=== PATIENT | male | born 1990 | race African-American/Black ===

== ENCOUNTER 2016-11-30 23:32 | Emergency (ER) | payer OTHER ==
[2016-12-01 00:40] LABS: BASO # 0.2 K/mm3 (0.0-0.2); BASO % 1.5 % (0.0-1.0); EOS # 0.2 K/mm3 (0.0-0.50); EOS % 1.8 % (0.0-3.0); LARGE UNSTAINED CELL # 0.2 K/mm3 (0.0-0.4); LARGE UNSTAINED CELL % 1.3 % (0.0-4.0); LYMPH # 2.2 K/mm3 (1.5-6.5); LYMPH % 18.2 % (24.0-44.0); MEAN CORPUSCULAR HEMOGLOBIN 28.4 pg (27.0-33.0); MEAN CORPUSCULAR HGB CONC 32.7 g/dl (32.0-36.5); MEAN CORPUSCULAR VOLUME 86.6 fl (80.0-96.0); MONO # 0.6 K/mm3 (0.0-0.8); MONO % 5.5 % (0.0-5.0); NEUTROPHILS # 8.2 K/mm3 (1.8-7.7); NEUTROPHILS % 71.8 % (36.0-66.0); PLATELET COUNT, AUTOMATED 230 k/mm3 (150-450); RED CELL DISTRIBUTION WIDTH 13.1 % (11.5-14.5); WHITE BLOOD COUNT 11.4 K/mm3 (4.0-10.0)
[2016-12-01 01:03] LABS: BLOOD UREA NITROGEN 13 MG/DL (7-18); CREATININE FOR GFR 1.33 MG/DL (0.70-1.30); GLUCOSE, FASTING 101 MG/DL (70-105)
[2016-12-01 01:24] LABS: AMPHETAMINES LEVEL URINE NEGATIVE (NEGATIVE); BENZODIAZEPINES URINE NEGATIVE (NEGATIVE); COCAINE METABOLITE URINE NEGATIVE (NEGATIVE); CONTROL LINE INT CTR LINE PRESENT; METHADONE URINE NEGATIVE (NEGATIVE); OPIATES URINE NEGATIVE (NEGATIVE); TRICYCLIC ANTIDEPRESS URINE NEGATIVE (NEGATIVE)
[2016-12-01 01:57] LABS: CHLORIDE LEVEL 103 MEQ/L (98-107); POTASSIUM SERUM 3.6 MEQ/L (3.5-5.1); SODIUM LEVEL 141 MEQ/L (136-145)
--- NOTE | 2016-12-01 01:57 | EDDOCDS ---
Nurse's Notes [facility] Name: Elif Patel Age: 25 yrs Sex: Male : 1990 Arrival Date: 11/30/2016 Time: 23:32 Bed I5 / M5 [facility] Diagnosis: Syncope and collapse;Dehydration Presentation: 11/30 23:36 Presenting complaint: Patient states: pt reports syncopal episode approx 1 hour ago. ead denies hx of syncopal episodes. pt denies dizziness. reports "I just felt really tired tonight.". Adult Sepsis Screening: The patient does not have new or worsening altered mentation. Patient's respiratory rate is less than 22. Systolic blood pressure is greater than 100. Patient has a qSOFA score of 0- Negative Sepsis Screen. Suicide/Homicide risk assessment- the patient denies having any suicidal and/or homicidal ideations and does not present with any other emotional, behavioral or mental health complaints. 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 Transition of care: patient was not received from another setting of care. 23:36 Acuity: TORIN Level 3 ead 23:36 Method Of Arrival: Walkin/Carried/Asstd ead Triage Assessment: 23:38 General: Appears in no apparent distress, comfortable, well nourished, well groomed, ead Behavior is appropriate for age, cooperative, pleasant. Pain: Location: abdomen Pain currently is 5 out of 10 on a pain scale. Pain began "before Chata.". Neurological: Level of Consciousness is awake, alert, obeys commands, Oriented to person, place, time, Denies weakness dizziness. Respiratory: Airway is patent Respiratory effort is even, unlabored. GI: Reports lower abdominal pain, upper abd pain, Denies nausea, vomiting. Derm: No deficits noted. 23:40 Pt Declines HIV testing. ead Historical: - Allergies: no known allergies; - Home Meds: 1. none - PMHx: Cataracts; - PSHx: none; - Social history: Smoking status: Patient states was never smoker of tobacco. Patient/guardian denies using alcohol, street drugs, No barriers to communication noted, The patient speaks fluent Faroese, Speaks appropriately for age. - Family history: Not pertinent. - : The pt / caregiver states he / she is not on anticoagulants. Home medication list is obtained from the patient. - Exposure Risk Screening:: None identified. Screenin/05 00:34 Screening information is obtained from the patient. Fall risk: No risks identified. kas2 Assistance ADL's: requires no assistance with activities of daily living. Abuse/DV Screen: The patient / caregiver reports he/she is: not in a situation that causes fear, pain or injury. Nutritional screening: No deficits noted. Advance Directives: Currently, there is no health care proxy. There is no active DNR order. There is no living will. There is no Power of Box Shook Patcher. home support is adequate. Assessment: 00:33 General: Appears in no apparent distress, comfortable, well nourished, well groomed, kas2 Behavior is appropriate for age, cooperative. Pain: Denies pain. Neurological: Level of Consciousness is awake, alert, Oriented to person, place, time, Solution Architect are equal bilaterally Moves all extremities. Speech is normal, Facial symmetry appears normal, Pupils are PERRLA. Cardiovascular: Capillary refill < 3 seconds Heart tones present Rhythm is regular. Respiratory: Airway is patent Respiratory effort is even, unlabored, Respiratory pattern is regular, symmetrical, Breath sounds are clear bilaterally. Derm: Skin is intact, is healthy with good turgor, Skin is dry, Skin is normal, Skin temperature is warm. 01:22 General: Patient up to bathroom to void.. kas2 01:30 General: Patient back in room and settled with family at bedside. No complaints at this kas2 time. Appears comfortable. Will continue to monitor.. Vital Signs: 11/30 23:34 BP 189 / 89 RA Sitting (auto/lg); Pulse 119; Resp 18; Temp 98.7(O); Pulse Ox 100% ; cmb Weight 102.06 kg; Height 5 ft. 9 in. (175.26 cm); Pain 0/10; 12/01 00:01 BP 150 / 80 RA Sitting (man/lg); jmb 00:25 BP 130 / 58 Supine (auto/lg); Pulse 75; ajs 00:25 BP 146 / 89 Sitting (man/lg); Pulse 76; ajs 00:26 BP 145 / 82 Standing (/lg); Pulse 81; ajs 01:51 BP 136 / 75; Pulse 64; Resp 18; Temp 98.5; Pulse Ox 98% ; ajs 11/30 23:34 Body Mass Index 33.23 (102.06 kg, 175.26 cm) cmb Vitals: 11/30 23:34 Log In Time: November 30, 2016 at 23:32. cmb ED Course: 23:33 Patient visited by Shirlene Adams. cmb 23:33 Patient moved to Waiting cmb 23:34 [facility] is Private Physician. cmb 23:36 Patient moved to Pre RCE cmb 23:38 Triage Initiated ead 23:40 Patient moved to Triage 1 ead 23:54 EKG done. (by ED staff). Reviewed by Isac Garcia DO. jmb 12/01 00:05 Melo Acuna PA is PHCP. mo1 00:05 Isac Garcia DO is Attending Physician. mo1 00:17 Patient visited by Melo Acuna PA. mo1 00:19 Patient moved to I5 / M5 jmb 00:26 Patient visited by Gail Cerrato. ajs 00:27 Drug Eval Toxicology ED Only Sent. jmb 00:27 Urinalysis Sent. jmb 00:34 Inserted saline lock: 20 gauge in left antecubital area and blood collected. The kas2 patient tolerated the procedure well. No procedures done that require assistance. 00:35 Patient visited by Kerry Rader RN. kas2 00:48 [facility] Payment Agreement was scanned into [employer] and attached to record. [facility] 00:55 Patient name changed from Jaerendiranta\\S\\\\S\\Jorge\\S\\ to Javonta\\S\\Loren\\S\\Jorge. EDMS 01:07 Patient visited by Kerry Rader RN. kas2 01:22 Patient visited by Kerry Rader RN. kas2 01:42 [facility] is Referral Physician. mo1 01:48 Patient visited by Kerry Rader RN. kas2 01:51 Patient visited by Gail Cerrato. ajs 01:52 Discontinued IV bleeding controlled, pressure dressing applied, No redness/swelling at [facility] site. 01:53 The patient / caregiver is instructed regarding the plan of care and ED course. kas2 Administered Medications: 00:32 Drug: NS 0.9% 1000 ml [sodium chloride 0.9 % intravenous solution] Route: IV; Rate: kas2 bolus; Site: left antecubital; Order Results: Lab Order: Basic Metabolic Profile; SPEC'M 12/01/16 00:30 Test: GLUCOSE, FASTING; Value: 101; Range: 70-105; Units: MG/DL; Status: F Test: BLOOD UREA NITROGEN; Value: 13; Range: 7-18; Units: MG/DL; Status: F Test: CREATININE FOR GFR; Value: 1.33; Range: 0.70-1.30; Abnormal: Above high normal; Units: MG/DL; Status: F Test: SODIUM LEVEL; Value: 141; Range: 136-145; Units: MEQ/L; Status: F Test: POTASSIUM SERUM; Value: 3.6; Range: 3.5-5.1; Units: MEQ/L; Status: F Test: CHLORIDE LEVEL; Value: 103; Range: 98-107; Units: MEQ/L; Status: F Test: CARBON DIOXIDE LEVEL; Value: 30; Range: 21-32; Units: MEQ/L; Status: F Test: ANION GAP; Range: 8-16; Units: MEQ/L; Status: I Test: CALCIUM LEVEL; Value: 9.0; Range: 8.5-10.1; Units: MG/DL; Status: F Lab Order: CBC with Diff; SPEC'M 12/01/16 00:30 Test: WHITE BLOOD COUNT; Value: 11.4; Range: 4.0-10.0; Abnormal: Above high normal; Units: K/mm3; Status: F Test: RED BLOOD COUNT; Value: 4.95; Range: 4.30-6.10; Units: M/mm3; Status: F Test: HEMOGLOBIN; Value: 14.0; Range: 14.0-18.0; Units: g/dl; Status: F Test: HEMATOCRIT; Value: 42.9; Range: 42.0-52.0; Units: %; Status: F Test: MEAN CORPUSCULAR VOLUME; Value: 86.6; Range: 80.0-96.0; Units: fl; Status: F Test: MEAN CORPUSCULAR HEMOGLOBIN; Value: 28.4; Range: 27.0-33.0; Units: pg; Status: F Test: MEAN CORPUSCULAR HGB CONC; Value: 32.7; Range: 32.0-36.5; Units: g/dl; Status: F Test: RED CELL DISTRIBUTION WIDTH; Value: 13.1; Range: 11.5-14.5; Units: %; Status: F Test: PLATELET COUNT, AUTOMATED; Value: 230; Range: 150-450; Units: k/mm3; Status: F Test: NEUTROPHILS %; Value: 71.8; Range: 36.0-66.0; Abnormal: Above high normal; Units: %; Status: F Test: LYMPH %; Value: 18.2; Range: 24.0-44.0; Abnormal: Below low normal; Units: %; Status: F Test: MONO %; Value: 5.5; Range: 0.0-5.0; Abnormal: Above high normal; Units: %; Status: F Test: EOS %; Value: 1.8; Range: 0.0-3.0; Units: %; Status: F Test: BASO %; Value: 1.5; Range: 0.0-1.0; Abnormal: Above high normal; Units: %; Status: F Test: LARGE UNSTAINED CELL %; Value: 1.3; Range: 0.0-4.0; Units: %; Status: F Test: NEUTROPHILS #; Value: 8.2; Range: 1.8-7.7; Abnormal: Above high normal; Units: K/mm3; Status: F Test: LYMPH #; Value: 2.2; Range: 1.5-6.5; Units: K/mm3; Status: F Test: MONO #; Value: 0.6; Range: 0.0-0.8; Units: K/mm3; Status: F Test: EOS #; Value: 0.2; Range: 0.0-0.50; Units: K/mm3; Status: F Test: BASO #; Value: 0.2; Range: 0.0-0.2; Units: K/mm3; Status: F Test: LARGE UNSTAINED CELL #; Value: 0.2; Range: 0.0-0.4; Units: K/mm3; Status: F Lab Order: Cardiac Injury Profile; SPEC'M 12/01/16 00:30 Test: CPK CREATINE PHOSPHOKINASE; Value: 1743; Range: 39-308; Abnormal: Above high normal; Units: U/L; Status: F Test: CK-MB VALUE MASS; Value: 2.9; Range: 0.0-3.6; Units: NG/ML; Status: F Test: MB/CK RELATIVE INDEX; Value: 0.16; Range: < OR =4; Status: F Test Note: ; DIAGNOSIS CRITERIA MMB ng/ml Relative Index (RI) NON-AMI < or = 5 N/A LUCAS ZONE > 5 < or = 4 AMI > 5 > 4 Lab Order: Drug Eval Toxicology ED Only; SPEC'M 12/01/16 00:30 Test: AMPHETAMINES LEVEL URINE; Value: NEGATIVE; Range: NEGATIVE; Status: F Test: BARBITURATES URINE; Value: NEGATIVE; Range: NEGATIVE; Status: F Test: BENZODIAZEPINES URINE; Value: NEGATIVE; Range: NEGATIVE; Status: F Test: CANNABINOIDS URINE; Value: NEGATIVE; Range: NEGATIVE; Status: F Test: COCAINE METABOLITE URINE; Value: NEGATIVE; Range: NEGATIVE; Status: F Test: METHADONE URINE; Value: NEGATIVE; Range: NEGATIVE; Status: F Test: OPIATES URINE; Value: NEGATIVE; Range: NEGATIVE; Status: F Test: TRICYCLIC ANTIDEPRESS URINE; Value: NEGATIVE; Range: NEGATIVE; Status: F Test Note: ; ALL PRESUMPTIVE POSITIVE FINDINGS ARE UNCONFIRMED NORMAL VALUES THRESHOLD IN NG/ML AMPHETAMINES 1000 METHAMPHETAMINES 1000 BARBITURATES 300 BENZODIAZEPINES 300 CANNABINOIDS (THC) 50 COCAINE METABOLITE 300 METHADONE 300 OPIATES 300 PHENCYCLIDINE 25 TRICYCLIC ANTIDEPRESSANTS 1000 RESULTS ARE FOR MEDICAL PURPOSES ONLY. ALL URINE SPECIMENS WILL BE SAVED FOR 3 DAYS. IF CONFIRMATION OF A PRESUMPTIVE POSTIVE SCREEN RESULT IS DESIRED, CALL CHEMISTRY ([phone]) AND REQUEST URINE TO BE SENT TO REFERENCE LAB. FOR A LIST OF CLOSELY RELATED COMPOUNDS PLEASE CALL THE LAB. Lab Order: Thyroid Stimulating Hormone; SPEC'M 12/01/16 00:30 Test: THYROID STIMULATING HORMONE; Value: 2.350; Range: 0.358-3.740; Units: uIU/ML; Status: F Lab Order: Troponin; SPEC'M 12/01/16 00:30 Test: TROPONIN I; Value: < 0.02; Range: < 0.10; Units: NG/ML; Status: F Test Note: ; Troponin I Reference Interval for Siemens [place] LOCI: 99th Percentile= 0.00-0.045 ng/ml Risk Stratification: <= 0.10 ng/ml Decreased Risk for Adverse Clinical Events. 0.10-1.50 ng/ml Increased Risk for Adverse Clinical Events. Evaluation of additional criterion and/or repeat testing in 2-6 hours is suggested to rule out myocardial damage. >= 1.50 ng/ml Indicative of Myocardial Injury. Lab Order: Urinalysis; SPEC'M 12/01/16 00:30 Test: APPEARANCE, URINE; Value: CLEAR; Range: CLEAR; Status: F Test: COLOR, URINE; Value: COLORLESS; Range: YELLOW; Status: F Test: PH,URINE; Value: 6.0; Range: 5.0-9.0; Units: UNITS; Status: F Test: SPECIFIC GRAVITY URINE AUTO; Value: 1.001; Range: 1.002-1.035; Abnormal: Below low normal; Status: F Test: PROTEIN, URINE AUTO; Value: NEGATIVE; Range: NEGATIVE; Units: mg/dL; Status: F Test: GLUCOSE, URINE (UA) AUTO; Value: NEGATIVE; Range: NEGATIVE; Units: mg/dL; Status: F Test: KETONE, URINE AUTO; Value: NEGATIVE; Range: NEGATIVE; Units: mg/dL; Status: F Test: UROBILINOGEN, URINE AUTO; Value: 0.2; Range: 0.0-2.0; Units: mg/dL; Status: F Test: BILIRUBIN, URINE AUTO; Value: NEGATIVE; Range: NEGATIVE; Status: F Test: NITRITE, URINE AUTO; Value: NEGATIVE; Range: NEGATIVE; Status: F Test: LEUKOCYTE ESTERASE, URINE AUTO; Value: NEGATIVE; Range: NEGATIVE; Status: F Test: BLOOD, URINE BLOOD; Value: NEGATIVE; Range: NEGATIVE; Status: F Test: WBC, URINE AUTO; Value: 0; Range: 0-3; Units: /HPF; Status: F Test: RBC, URINE AUTO; Value: 0; Range: 0-3; Units: /HPF; Status: F Test: BACTERIA, URINE AUTO; Value: NEGATIVE; Range: NEGATIVE; Status: F Test: SQUAMOUS EPITHELIAL CELL UR AU; Value: 0; Range: 0-6; Units: /HPF; Status: F Test: HYALINE CAST, URINE AUTO; Value: 0; Range: 0-1; Units: /LPF; Status: F Outcome: 01:43 Discharge ordered by Provider. mo1 01:53 Discharge Assessment: patient administered narcotics - no. The following High Risk [facility] Discharge criteria are identified: None. Discharged to home ambulatory, with family. Condition: good Condition: stable Condition: improved. No special radiology studies were completed. Property :Personal belongings accompany Pt. 01:56 [facility]. [facility] Signatures: Dispatcher [employer] Gail Schmidt Chelsea cmb O'Hagan, Michael, PA PA mo1 Matt GarciaRN RN Chasidy Bentley RN RN ead Hook, Sandra slh Smith, KimRN RN kas2 RUTHIE
--- NOTE | 2016-12-01 01:57 | EDDOCDS ---
Physician Documentation [facility] Name: Elif Patel Age: 25 yrs Sex: Male : 1990 Arrival Date: 11/30/2016 Time: 23:32 Bed I5 / M5 Private MD: [facility] Disposition: 12/01/16 01:43 Discharged to Home/Self Care. Impression: Syncope and collapse, Dehydration. - Condition is Stable. - Discharge Instructions: Dehydration, Adult, Near-Syncope, Syncope. - Medication Reconciliation, Local Pharmacy Hours form. - Follow up: [facility]; When: Call to arrange an appointment; Reason: Recheck today's complaints, Continuance of care. - Problem is new. - Symptoms have improved. Historical: - Allergies: no known allergies; - Home Meds: 1. none - PMHx: Cataracts; - PSHx: none; - Social history: Smoking status: Patient states was never smoker of tobacco. Patient/guardian denies using alcohol, street drugs, No barriers to communication noted, The patient speaks fluent Finnish, Speaks appropriately for age. - Family history: Not pertinent. - : The pt / caregiver states he / she is not on anticoagulants. Home medication list is obtained from the patient. - Exposure Risk Screening:: None identified. Vital Signs: 11/30 23:34 BP 189 / 89 RA Sitting (auto/lg); Pulse 119; Resp 18; Temp 98.7(O); Pulse Ox 100% ; cmb Weight 102.06 kg / 225 lbs; Height 5 ft. 9 in. (175.26 cm); Pain 0/10; 12/01 00:01 BP 150 / 80 RA Sitting (man/lg); jmb 00:25 BP 130 / 58 Supine (auto/lg); Pulse 75; ajs 00:25 BP 146 / 89 Sitting (man/lg); Pulse 76; ajs 00:26 BP 145 / 82 Standing (/lg); Pulse 81; ajs 01:51 BP 136 / 75; Pulse 64; Resp 18; Temp 98.5; Pulse Ox 98% ; ajs 11/30 23:34 Body Mass Index 33.23 (102.06 kg, 175.26 cm) cmb MDM: 11/30 23:45 ECG WITH READING ER PHYS+CARDIAG ordered. EDMS 12/01 00:21 IV Saline Lock ordered. mo1 00:21 Orthostatic VS ordered. mo1 00:21 NS 0.9% 1000 ml IV at bolus once ordered. mo1 00:22 Basic Metabolic Profile Ordered. EDMS 00:22 CBC with Diff Ordered. EDMS 00:22 Cardiac Injury Profile Ordered. EDMS 00:22 Drug Eval Toxicology ED Only Ordered. EDMS 00:22 Thyroid Stimulating Hormone Ordered. EDMS 00:22 Troponin Ordered. EDMS 00:22 Urinalysis Ordered. EDMS 00:44 Financial registration complete. [facility] 00:48 [facility] Payment Agreement was scanned into [employer] and attached to record. slh 01:34 CBC with Diff Reviewed. mo1 01:34 Cardiac Injury Profile Reviewed. mo1 01:34 Urinalysis Reviewed. mo1 01:34 Drug Eval Toxicology ED Only Reviewed. mo1 01:34 Thyroid Stimulating Hormone Reviewed. mo1 01:35 Troponin Reviewed. mo1 01:50 Basic Metabolic Profile Reviewed. mo1 Administered Medications: 00:32 Drug: NS 0.9% 1000 ml [sodium chloride 0.9 % intravenous solution] Route: IV; Rate: kas2 bolus; Site: left antecubital; Signatures: Dispatcher [employer] EDMN Melo Acuna PA PA mo1 Chasidy CamposRN Antonia Mitchell Kim, RN RN kas2 The chart was reviewed and I authenticate all verbal orders and agree with the evaluation and treatment provided.Attachments: 00:48 [facility] Payment Agreement [facility] MTDD
[2016-12-01 01:58] LABS: ANION GAP 8 MEQ/L (8-16); CARBON DIOXIDE LEVEL 30 MEQ/L (21-32)
--- NOTE | 2016-12-01 12:06 | ECGEPIP ---
Stationary ECG Study [facility] - ED Test Date: 2016-11-30 Pat Name: KWAKU HOUGH Department: Room: - Gender: M Central Services Tech: jacob : 1990 Requested By: MADISON OZUNA Order Number: [id number] Reading MD: Gale Espino Measurements Intervals Deane Rate: 87 P: 70 AR: 132 QRS: 68 QRSD: 102 T: 26 QT: 349 QTc: 421 Interpretive Statements SINUS RHYTHM RIGHT VENTRICULAR CONDUCTION DELAY NO PRIOR FOR COMPARISON Electronically Signed On 12-01-2016 12:06:05 EST by Gale Espino
--- NOTE | 2016-12-03 02:58 | EDDOCDS ---
Nurse's Notes [facility] Name: Kwaku Hough Age: 25 yrs Sex: Male : 1990 Arrival Date: 11/30/2016 Time: 23:32 Bed I5 / M5 [facility] Diagnosis: Syncope and collapse;Dehydration Presentation: 11/30 23:36 Presenting complaint: Patient states: pt reports syncopal episode approx 1 hour ago. ead denies hx of syncopal episodes. pt denies dizziness. reports "I just felt really tired tonight.". Adult Sepsis Screening: The patient does not have new or worsening altered mentation. Patient's respiratory rate is less than 22. Systolic blood pressure is greater than 100. Patient has a qSOFA score of 0- Negative Sepsis Screen. Suicide/Homicide risk assessment- the patient denies having any suicidal and/or homicidal ideations and does not present with any other emotional, behavioral or mental health complaints. Status: The patient is an active duty manager student services. Transition of care: patient was not received from another setting of care. 23:36 Acuity: TORIN Level 3 ead 23:36 Method Of Arrival: Walkin/Carried/Asstd ead Triage Assessment: 23:38 General: Appears in no apparent distress, comfortable, well nourished, well groomed, ead Behavior is appropriate for age, cooperative, pleasant. Pain: Location: abdomen Pain currently is 5 out of 10 on a pain scale. Pain began "before Ch[place].". Neurological: Level of Consciousness is awake, alert, obeys commands, Oriented to person, place, time, Denies weakness dizziness. Respiratory: Airway is patent Respiratory effort is even, unlabored. GI: Reports lower abdominal pain, upper abd pain, Denies nausea, vomiting. Derm: No deficits noted. 23:40 Pt Declines HIV testing. ead Historical: - Allergies: no known allergies; - Home Meds: 1. none - PMHx: Cataracts; - PSHx: none; - Social history: Smoking status: Patient states was never smoker of tobacco. Patient/guardian denies using alcohol, street drugs, No barriers to communication noted, The patient speaks fluent German, Speaks appropriately for age. - Family history: Not pertinent. - : The pt / caregiver states he / she is not on anticoagulants. Home medication list is obtained from the patient. - Exposure Risk Screening:: None identified. Screenin/05 00:34 Screening information is obtained from the patient. Fall risk: No risks identified. kas2 Assistance ADL's: requires no assistance with activities of daily living. Abuse/DV Screen: The patient / caregiver reports he/she is: not in a situation that causes fear, pain or injury. Nutritional screening: No deficits noted. Advance Directives: Currently, there is no health care proxy. There is no active DNR order. There is no living will. There is no Power of Observer [employer]. home support is adequate. Assessment: 00:33 General: Appears in no apparent distress, comfortable, well nourished, well groomed, kas2 Behavior is appropriate for age, cooperative. Pain: Denies pain. Neurological: Level of Consciousness is awake, alert, Oriented to person, place, time, Physical Therapy Technician are equal bilaterally Moves all extremities. Speech is normal, Facial symmetry appears normal, Pupils are PERRLA. Cardiovascular: Capillary refill < 3 seconds Heart tones present Rhythm is regular. Respiratory: Airway is patent Respiratory effort is even, unlabored, Respiratory pattern is regular, symmetrical, Breath sounds are clear bilaterally. Derm: Skin is intact, is healthy with good turgor, Skin is dry, Skin is normal, Skin temperature is warm. 01:22 General: Patient up to bathroom to void.. kas2 01:30 General: Patient back in room and settled with family at bedside. No complaints at this kas2 time. Appears comfortable. Will continue to monitor.. Vital Signs: 11/30 23:34 BP 189 / 89 RA Sitting (auto/lg); Pulse 119; Resp 18; Temp 98.7(O); Pulse Ox 100% ; cmb Weight 102.06 kg; Height 5 ft. 9 in. (175.26 cm); Pain 0/10; 12/01 00:01 BP 150 / 80 RA Sitting (man/lg); jmb 00:25 BP 130 / 58 Supine (auto/lg); Pulse 75; ajs 00:25 BP 146 / 89 Sitting (man/lg); Pulse 76; ajs 00:26 BP 145 / 82 Standing (/lg); Pulse 81; ajs 01:51 BP 136 / 75; Pulse 64; Resp 18; Temp 98.5; Pulse Ox 98% ; ajs 11/30 23:34 Body Mass Index 33.23 (102.06 kg, 175.26 cm) cmb Vitals: 11/30 23:34 Log In Time: November 30, 2016 at 23:32. cmb ED Course: 23:33 Patient visited by Shirlene Adams. cmb 23:33 Patient moved to Waiting cmb 23:34 [facility] is Private Physician. cmb 23:36 Patient moved to Pre RCE cmb 23:38 Triage Initiated ead 23:40 Patient moved to Triage 1 ead 23:54 EKG done. (by ED staff). Reviewed by Madison Ozuna DO. jmb 12/01 00:05 Melo Acuna PA is PHCP. mo1 00:05 Madison Ozuna DO is Attending Physician. mo1 00:17 Patient visited by Melo Acuna PA. mo1 00:19 Patient moved to I5 / M5 jmb 00:26 Patient visited by Gail Cerrato. ajs 00:27 Drug Eval Toxicology ED Only Sent. jmb 00:27 Urinalysis Sent. jmb 00:34 Inserted saline lock: 20 gauge in left antecubital area and blood collected. The kas2 patient tolerated the procedure well. No procedures done that require assistance. 00:35 Patient visited by Kerry Rader RN. kas2 00:48 [facility] Payment Agreement was scanned into [employer] and attached to record. [facility] 00:55 Patient name changed from Javonta\\S\\\\S\\Jorge\\S\\ to Javonta\\S\\Loren\\S\\Jorge. EDMS 01:07 Patient visited by Kerry Rader RN. kas2 01:22 Patient visited by Kerry Rader RN. kas2 01:42 [facility] is Referral Physician. mo1 01:48 Patient visited by Kerry Rader RN. kas2 01:51 Patient visited by Gail Cerrato. ajs 01:52 Discontinued IV bleeding controlled, pressure dressing applied, No redness/swelling at [facility] site. 01:53 The patient / caregiver is instructed regarding the plan of care and ED course. kas2 12:30 EKG-ADULT Returned. EDMS 12/02 08:53 T-Sheet-- Draft Copy was scanned into [employer] and attached to record. gb Administered Medications: 12/01 00:32 Drug: NS 0.9% 1000 ml [sodium chloride 0.9 % intravenous solution] Route: IV; Rate: kas2 bolus; Site: left antecubital; Order Results: Lab Order: Basic Metabolic Profile; SPEC'M 12/01/16 00:30 Test: GLUCOSE, FASTING; Value: 101; Range: 70-105; Units: MG/DL; Status: F Test: BLOOD UREA NITROGEN; Value: 13; Range: 7-18; Units: MG/DL; Status: F Test: CREATININE FOR GFR; Value: 1.33; Range: 0.70-1.30; Abnormal: Above high normal; Units: MG/DL; Status: F Test: SODIUM LEVEL; Value: 141; Range: 136-145; Units: MEQ/L; Status: F Test: POTASSIUM SERUM; Value: 3.6; Range: 3.5-5.1; Units: MEQ/L; Status: F Test: CHLORIDE LEVEL; Value: 103; Range: 98-107; Units: MEQ/L; Status: F Test: CARBON DIOXIDE LEVEL; Value: 30; Range: 21-32; Units: MEQ/L; Status: F Test: ANION GAP; Value: 8; Range: 8-16; Units: MEQ/L; Status: F Test: CALCIUM LEVEL; Value: 9.0; Range: 8.5-10.1; Units: MG/DL; Status: F Lab Order: CBC with Diff; SPEC'M 12/01/16 00:30 Test: WHITE BLOOD COUNT; Value: 11.4; Range: 4.0-10.0; Abnormal: Above high normal; Units: K/mm3; Status: F Test: RED BLOOD COUNT; Value: 4.95; Range: 4.30-6.10; Units: M/mm3; Status: F Test: HEMOGLOBIN; Value: 14.0; Range: 14.0-18.0; Units: g/dl; Status: F Test: HEMATOCRIT; Value: 42.9; Range: 42.0-52.0; Units: %; Status: F Test: MEAN CORPUSCULAR VOLUME; Value: 86.6; Range: 80.0-96.0; Units: fl; Status: F Test: MEAN CORPUSCULAR HEMOGLOBIN; Value: 28.4; Range: 27.0-33.0; Units: pg; Status: F Test: MEAN CORPUSCULAR HGB CONC; Value: 32.7; Range: 32.0-36.5; Units: g/dl; Status: F Test: RED CELL DISTRIBUTION WIDTH; Value: 13.1; Range: 11.5-14.5; Units: %; Status: F Test: PLATELET COUNT, AUTOMATED; Value: 230; Range: 150-450; Units: k/mm3; Status: F Test: NEUTROPHILS %; Value: 71.8; Range: 36.0-66.0; Abnormal: Above high normal; Units: %; Status: F Test: LYMPH %; Value: 18.2; Range: 24.0-44.0; Abnormal: Below low normal; Units: %; Status: F Test: MONO %; Value: 5.5; Range: 0.0-5.0; Abnormal: Above high normal; Units: %; Status: F Test: EOS %; Value: 1.8; Range: 0.0-3.0; Units: %; Status: F Test: BASO %; Value: 1.5; Range: 0.0-1.0; Abnormal: Above high normal; Units: %; Status: F Test: LARGE UNSTAINED CELL %; Value: 1.3; Range: 0.0-4.0; Units: %; Status: F Test: NEUTROPHILS #; Value: 8.2; Range: 1.8-7.7; Abnormal: Above high normal; Units: K/mm3; Status: F Test: LYMPH #; Value: 2.2; Range: 1.5-6.5; Units: K/mm3; Status: F Test: MONO #; Value: 0.6; Range: 0.0-0.8; Units: K/mm3; Status: F Test: EOS #; Value: 0.2; Range: 0.0-0.50; Units: K/mm3; Status: F Test: BASO #; Value: 0.2; Range: 0.0-0.2; Units: K/mm3; Status: F Test: LARGE UNSTAINED CELL #; Value: 0.2; Range: 0.0-0.4; Units: K/mm3; Status: F Lab Order: Cardiac Injury Profile; SPEC'M 12/01/16 00:30 Test: CPK CREATINE PHOSPHOKINASE; Value: 1743; Range: 39-308; Abnormal: Above high normal; Units: U/L; Status: F Test: CK-MB VALUE MASS; Value: 2.9; Range: 0.0-3.6; Units: NG/ML; Status: F Test: MB/CK RELATIVE INDEX; Value: 0.16; Range: < OR =4; Status: F Test Note: ; DIAGNOSIS CRITERIA MMB ng/ml Relative Index (RI) NON-AMI < or = 5 N/A LUCAS ZONE > 5 < or = 4 AMI > 5 > 4 Lab Order: Drug Eval Toxicology ED Only; SPEC'M 12/01/16 00:30 Test: AMPHETAMINES LEVEL URINE; Value: NEGATIVE; Range: NEGATIVE; Status: F Test: BARBITURATES URINE; Value: NEGATIVE; Range: NEGATIVE; Status: F Test: BENZODIAZEPINES URINE; Value: NEGATIVE; Range: NEGATIVE; Status: F Test: CANNABINOIDS URINE; Value: NEGATIVE; Range: NEGATIVE; Status: F Test: COCAINE METABOLITE URINE; Value: NEGATIVE; Range: NEGATIVE; Status: F Test: METHADONE URINE; Value: NEGATIVE; Range: NEGATIVE; Status: F Test: OPIATES URINE; Value: NEGATIVE; Range: NEGATIVE; Status: F Test: TRICYCLIC ANTIDEPRESS URINE; Value: NEGATIVE; Range: NEGATIVE; Status: F Test Note: ; ALL PRESUMPTIVE POSITIVE FINDINGS ARE UNCONFIRMED NORMAL VALUES THRESHOLD IN NG/ML AMPHETAMINES 1000 METHAMPHETAMINES 1000 BARBITURATES 300 BENZODIAZEPINES 300 CANNABINOIDS (THC) 50 COCAINE METABOLITE 300 METHADONE 300 OPIATES 300 PHENCYCLIDINE 25 TRICYCLIC ANTIDEPRESSANTS 1000 RESULTS ARE FOR MEDICAL PURPOSES ONLY. ALL URINE SPECIMENS WILL BE SAVED FOR 3 DAYS. IF CONFIRMATION OF A PRESUMPTIVE POSTIVE SCREEN RESULT IS DESIRED, CALL CHEMISTRY ([phone]) AND REQUEST URINE TO BE SENT TO REFERENCE LAB. FOR A LIST OF CLOSELY RELATED COMPOUNDS PLEASE CALL THE LAB. Lab Order: Thyroid Stimulating Hormone; SPEC'M 12/01/16 00:30 Test: THYROID STIMULATING HORMONE; Value: 2.350; Range: 0.358-3.740; Units: uIU/ML; Status: F Lab Order: Troponin; SPEC'M 12/01/16 00:30 Test: TROPONIN I; Value: < 0.02; Range: < 0.10; Units: NG/ML; Status: F Test Note: ; Troponin I Reference Interval for Siemens [place] LOCI: 99th Percentile= 0.00-0.045 ng/ml Risk Stratification: <= 0.10 ng/ml Decreased Risk for Adverse Clinical Events. 0.10-1.50 ng/ml Increased Risk for Adverse Clinical Events. Evaluation of additional criterion and/or repeat testing in 2-6 hours is suggested to rule out myocardial damage. >= 1.50 ng/ml Indicative of Myocardial Injury. Lab Order: Urinalysis; SPEC'M 12/01/16 00:30 Test: APPEARANCE, URINE; Value: CLEAR; Range: CLEAR; Status: F Test: COLOR, URINE; Value: COLORLESS; Range: YELLOW; Status: F Test: PH,URINE; Value: 6.0; Range: 5.0-9.0; Units: UNITS; Status: F Test: SPECIFIC GRAVITY URINE AUTO; Value: 1.001; Range: 1.002-1.035; Abnormal: Below low normal; Status: F Test: PROTEIN, URINE AUTO; Value: NEGATIVE; Range: NEGATIVE; Units: mg/dL; Status: F Test: GLUCOSE, URINE (UA) AUTO; Value: NEGATIVE; Range: NEGATIVE; Units: mg/dL; Status: F Test: KETONE, URINE AUTO; Value: NEGATIVE; Range: NEGATIVE; Units: mg/dL; Status: F Test: UROBILINOGEN, URINE AUTO; Value: 0.2; Range: 0.0-2.0; Units: mg/dL; Status: F Test: BILIRUBIN, URINE AUTO; Value: NEGATIVE; Range: NEGATIVE; Status: F Test: NITRITE, URINE AUTO; Value: NEGATIVE; Range: NEGATIVE; Status: F Test: LEUKOCYTE ESTERASE, URINE AUTO; Value: NEGATIVE; Range: NEGATIVE; Status: F Test: BLOOD, URINE BLOOD; Value: NEGATIVE; Range: NEGATIVE; Status: F Test: WBC, URINE AUTO; Value: 0; Range: 0-3; Units: /HPF; Status: F Test: RBC, URINE AUTO; Value: 0; Range: 0-3; Units: /HPF; Status: F Test: BACTERIA, URINE AUTO; Value: NEGATIVE; Range: NEGATIVE; Status: F Test: SQUAMOUS EPITHELIAL CELL UR AU; Value: 0; Range: 0-6; Units: /HPF; Status: F Test: HYALINE CAST, URINE AUTO; Value: 0; Range: 0-1; Units: /LPF; Status: F Radiology Order: EKG-ADULT Test: EKG-ADULT REASON FOR EXAMINATION: Syncope; Stationary ECG Study; [facility] - ED; ; Test Date: 2016-11-30; Pat Name: KWAKU HOUGH Department:; Room: -; Gender: M Director Of Product Marketing: jacob; : 1990 Requested By: MADISON OZUNA; Order Number: [id number] Reading MD: Gale Espino; Measurements; Intervals [place]; Rate: 87 P: 70; VT: 132 QRS: 68; QRSD: 102 T: 26; QT: 349; QTc: 421; Interpretive Statements; SINUS RHYTHM; RIGHT VENTRICULAR CONDUCTION DELAY; NO PRIOR FOR COMPARISON; Electronically Signed On 12-01-2016 12:06:05 EST by Gale Espino; Outcome: 01:43 Discharge ordered by Provider. mo1 01:53 Discharge Assessment: patient administered narcotics - no. The following High Risk [facility] Discharge criteria are identified: None. Discharged to home ambulatory, with family. Condition: good Condition: stable Condition: improved. No special radiology studies were completed. Property :Personal belongings accompany Pt. 01:56 Patient left the ED. kas2 Signatures: Dispatcher [employer] EDMS Caryn Kim, Gail Borajs [place] cmb O'Hagan, Michael, PA PA mo1 Matt GarciaRN RN Chasidy Bentley RN RN Antonia Zuñiga Kim, RN RN kas2 Chart Complete MTDD
--- NOTE | 2016-12-03 02:58 | EDDOCDS ---
Physician Documentation [facility] Name: Elif Patel Age: 25 yrs Sex: Male : 1990 Arrival Date: 11/30/2016 Time: 23:32 Bed I5 / M5 Private MD: [facility] Disposition: 12/01/16 01:43 Discharged to Home/Self Care. Impression: Syncope and collapse, Dehydration. - Condition is Stable. - Discharge Instructions: Dehydration, Adult, Near-Syncope, Syncope. - Medication Reconciliation, Local Pharmacy Hours form. - Follow up: [facility]; When: Call to arrange an appointment; Reason: Recheck today's complaints, Continuance of care. - Problem is new. - Symptoms have improved. Historical: - Allergies: no known allergies; - Home Meds: 1. none - PMHx: Cataracts; - PSHx: none; - Social history: Smoking status: Patient states was never smoker of tobacco. Patient/guardian denies using alcohol, street drugs, No barriers to communication noted, The patient speaks fluent Hungarian, Speaks appropriately for age. - Family history: Not pertinent. - : The pt / caregiver states he / she is not on anticoagulants. Home medication list is obtained from the patient. - Exposure Risk Screening:: None identified. Vital Signs: 11/30 23:34 BP 189 / 89 RA Sitting (auto/lg); Pulse 119; Resp 18; Temp 98.7(O); Pulse Ox 100% ; cmb Weight 102.06 kg / 225 lbs; Height 5 ft. 9 in. (175.26 cm); Pain 0/10; 12/01 00:01 BP 150 / 80 RA Sitting (man/lg); jmb 00:25 BP 130 / 58 Supine (auto/lg); Pulse 75; ajs 00:25 BP 146 / 89 Sitting (man/lg); Pulse 76; ajs 00:26 BP 145 / 82 Standing (/lg); Pulse 81; ajs 01:51 BP 136 / 75; Pulse 64; Resp 18; Temp 98.5; Pulse Ox 98% ; ajs 11/30 23:34 Body Mass Index 33.23 (102.06 kg, 175.26 cm) cmb MDM: 11/30 23:45 ECG WITH READING ER PHYS+CARDIAG ordered. EDMS 05 00:21 IV Saline Lock ordered. mo1 00:21 Orthostatic VS ordered. mo1 00:21 NS 0.9% 1000 ml IV at bolus once ordered. mo1 00:22 Basic Metabolic Profile Ordered. EDMS 00:22 CBC with Diff Ordered. EDMS 00:22 Cardiac Injury Profile Ordered. EDMS 00:22 Drug Eval Toxicology ED Only Ordered. EDMS 00:22 Thyroid Stimulating Hormone Ordered. EDMS 00:22 Troponin Ordered. EDMS 00:22 Urinalysis Ordered. EDMS 00:44 Financial registration complete. sl 00:48 [facility] Payment Agreement was scanned into [employer] and attached to record. slh 01:34 CBC with Diff Reviewed. mo1 01:34 Cardiac Injury Profile Reviewed. mo1 01:34 Urinalysis Reviewed. mo1 01:34 Drug Eval Toxicology ED Only Reviewed. mo1 01:34 Thyroid Stimulating Hormone Reviewed. mo1 01:35 Troponin Reviewed. mo1 01:50 Basic Metabolic Profile Reviewed. [facility] 12/02 08:53 T-Sheet-- Draft Copy was scanned into [employer] and attached to record. gb Administered Medications: 12/01 00:32 Drug: NS 0.9% 1000 ml [sodium chloride 0.9 % intravenous solution] Route: IV; Rate: kas2 bolus; Site: left antecubital; Signatures: Dispatcher [employer] EDMI Caryn Kim, Reg Reg gb Melo Acuna PA PA mo1 Chasidy CamposRN Antonia Mitchell Kim, RN RN kas2 The chart was reviewed and I authenticate all verbal orders and agree with the evaluation and treatment provided.Attachments: 00:48 [facility] Payment Agreement [facility] 12/02 08:53 T-Sheet-- Draft Copy gb Chart Complete MTDD
--- NOTE | 2016-12-03 02:58 | EDDOCDS ---
Physician Documentation [facility] Name: Elif Patel Age: 25 yrs Sex: Male : 1990 Arrival Date: 11/30/2016 Time: 23:32 Bed I5 / M5 Private MD: [facility] Disposition: 12/01/16 01:43 Discharged to Home/Self Care. Impression: Syncope and collapse, Dehydration. - Condition is Stable. - Discharge Instructions: Dehydration, Adult, Near-Syncope, Syncope. - Medication Reconciliation, Local Pharmacy Hours form. - Follow up: [facility]; When: Call to arrange an appointment; Reason: Recheck today's complaints, Continuance of care. - Problem is new. - Symptoms have improved. Historical: - Allergies: no known allergies; - Home Meds: 1. none - PMHx: Cataracts; - PSHx: none; - Social history: Smoking status: Patient states was never smoker of tobacco. Patient/guardian denies using alcohol, street drugs, No barriers to communication noted, The patient speaks fluent Colombian, Speaks appropriately for age. - Family history: Not pertinent. - : The pt / caregiver states he / she is not on anticoagulants. Home medication list is obtained from the patient. - Exposure Risk Screening:: None identified. Vital Signs: 11/30 23:34 BP 189 / 89 RA Sitting (auto/lg); Pulse 119; Resp 18; Temp 98.7(O); Pulse Ox 100% ; cmb Weight 102.06 kg / 225 lbs; Height 5 ft. 9 in. (175.26 cm); Pain 0/10; 12/01 00:01 BP 150 / 80 RA Sitting (man/lg); jmb 00:25 BP 130 / 58 Supine (auto/lg); Pulse 75; ajs 00:25 BP 146 / 89 Sitting (man/lg); Pulse 76; ajs 00:26 BP 145 / 82 Standing (/lg); Pulse 81; ajs 01:51 BP 136 / 75; Pulse 64; Resp 18; Temp 98.5; Pulse Ox 98% ; ajs 11/30 23:34 Body Mass Index 33.23 (102.06 kg, 175.26 cm) cmb MDM: 11/30 23:45 ECG WITH READING ER PHYS+CARDIAG ordered. EDMS 05 00:21 IV Saline Lock ordered. mo1 00:21 Orthostatic VS ordered. mo1 00:21 NS 0.9% 1000 ml IV at bolus once ordered. mo1 00:22 Basic Metabolic Profile Ordered. EDMS 00:22 CBC with Diff Ordered. EDMS 00:22 Cardiac Injury Profile Ordered. EDMS 00:22 Drug Eval Toxicology ED Only Ordered. EDMS 00:22 Thyroid Stimulating Hormone Ordered. EDMS 00:22 Troponin Ordered. EDMS 00:22 Urinalysis Ordered. EDMS 00:44 Financial registration complete. sl 00:48 [facility] Payment Agreement was scanned into [employer] and attached to record. slh 01:34 CBC with Diff Reviewed. mo1 01:34 Cardiac Injury Profile Reviewed. mo1 01:34 Urinalysis Reviewed. mo1 01:34 Drug Eval Toxicology ED Only Reviewed. mo1 01:34 Thyroid Stimulating Hormone Reviewed. mo1 01:35 Troponin Reviewed. mo1 01:50 Basic Metabolic Profile Reviewed. [facility] 12/02 08:53 T-Sheet-- Draft Copy was scanned into [employer] and attached to record. gb Administered Medications: 12/01 00:32 Drug: NS 0.9% 1000 ml [sodium chloride 0.9 % intravenous solution] Route: IV; Rate: kas2 bolus; Site: left antecubital; Signatures: Dispatcher [employer] EDDC Caryn Kim, Reg Reg gb Melo Acuna PA PA mo1 Chasidy CamposRN Antonia Mitchell Kim, RN RN kas2 The chart was reviewed and I authenticate all verbal orders and agree with the evaluation and treatment provided.Attachments: 00:48 [facility] Payment Agreement [facility] 12/02 08:53 T-Sheet-- Draft Copy gb Chart Complete MTDD
--- NOTE | 2016-12-06 09:34 | EDDOCDS ---
Physician Documentation [facility] Name: Elif Patel Age: 25 yrs Sex: Male : 1990 Arrival Date: 11/30/2016 Time: 23:32 Bed I5 / M5 Private MD: [facility] Disposition: 12/01/16 01:43 Discharged to Home/Self Care. Impression: Syncope and collapse, Dehydration. - Condition is Stable. - Discharge Instructions: Dehydration, Adult, Near-Syncope, Syncope. - Medication Reconciliation, Local Pharmacy Hours form. - Follow up: [facility]; When: Call to arrange an appointment; Reason: Recheck today's complaints, Continuance of care. - Problem is new. - Symptoms have improved. Historical: - Allergies: no known allergies; - Home Meds: 1. none - PMHx: Cataracts; - PSHx: none; - Social history: Smoking status: Patient states was never smoker of tobacco. Patient/guardian denies using alcohol, street drugs, No barriers to communication noted, The patient speaks fluent Dominican, Speaks appropriately for age. - Family history: Not pertinent. - : The pt / caregiver states he / she is not on anticoagulants. Home medication list is obtained from the patient. - Exposure Risk Screening:: None identified. Vital Signs: 11/30 23:34 BP 189 / 89 RA Sitting (auto/lg); Pulse 119; Resp 18; Temp 98.7(O); Pulse Ox 100% ; cmb Weight 102.06 kg / 225 lbs; Height 5 ft. 9 in. (175.26 cm); Pain 0/10; 12/01 00:01 BP 150 / 80 RA Sitting (man/lg); jmb 00:25 BP 130 / 58 Supine (auto/lg); Pulse 75; ajs 00:25 BP 146 / 89 Sitting (man/lg); Pulse 76; ajs 00:26 BP 145 / 82 Standing (/lg); Pulse 81; ajs 01:51 BP 136 / 75; Pulse 64; Resp 18; Temp 98.5; Pulse Ox 98% ; ajs 11/30 23:34 Body Mass Index 33.23 (102.06 kg, 175.26 cm) cmb MDM: 11/30 23:45 ECG WITH READING ER PHYS+CARDIAG ordered. EDMS 05 00:21 IV Saline Lock ordered. mo1 00:21 Orthostatic VS ordered. mo1 00:21 NS 0.9% 1000 ml IV at bolus once ordered. mo1 00:22 Basic Metabolic Profile Ordered. EDMS 00:22 CBC with Diff Ordered. EDMS 00:22 Cardiac Injury Profile Ordered. EDMS 00:22 Drug Eval Toxicology ED Only Ordered. EDMS 00:22 Thyroid Stimulating Hormone Ordered. EDMS 00:22 Troponin Ordered. EDMS 00:22 Urinalysis Ordered. EDMS 00:44 Financial registration complete. sl 00:48 [facility] Payment Agreement was scanned into [employer] and attached to record. slh 01:34 CBC with Diff Reviewed. mo1 01:34 Cardiac Injury Profile Reviewed. mo1 01:34 Urinalysis Reviewed. mo1 01:34 Drug Eval Toxicology ED Only Reviewed. mo1 01:34 Thyroid Stimulating Hormone Reviewed. mo1 01:35 Troponin Reviewed. mo1 01:50 Basic Metabolic Profile Reviewed. [facility] 12/02 08:53 T-Sheet-- Draft Copy was scanned into [employer] and attached to record. gb Administered Medications: 12/01 00:32 Drug: NS 0.9% 1000 ml [sodium chloride 0.9 % intravenous solution] Route: IV; Rate: kas2 bolus; Site: left antecubital; Signatures: Dispatcher [employer] EDOR Caryn Kim, Reg Reg gb Melo Acuna PA PA mo1 Chasidy CamposRN Antonia Mitchell Kim, RN RN kas2 The chart was reviewed and I authenticate all verbal orders and agree with the evaluation and treatment provided.Attachments: 00:48 [facility] Payment Agreement [facility] 12/02 08:53 T-Sheet-- Draft Copy gb Chart Complete MTDD
--- NOTE | 2016-12-06 09:34 | EDDOCDS ---
Nurse's Notes [facility] Name: Kwaku Hough Age: 25 yrs Sex: Male : 1990 Arrival Date: 11/30/2016 Time: 23:32 Bed I5 / M5 [facility] Diagnosis: Syncope and collapse;Dehydration Presentation: 11/30 23:36 Presenting complaint: Patient states: pt reports syncopal episode approx 1 hour ago. ead denies hx of syncopal episodes. pt denies dizziness. reports "I just felt really tired tonight.". Adult Sepsis Screening: The patient does not have new or worsening altered mentation. Patient's respiratory rate is less than 22. Systolic blood pressure is greater than 100. Patient has a qSOFA score of 0- Negative Sepsis Screen. Suicide/Homicide risk assessment- the patient denies having any suicidal and/or homicidal ideations and does not present with any other emotional, behavioral or mental health complaints. Status: The patient is an active duty dispatcher service. Transition of care: patient was not received from another setting of care. 23:36 Acuity: TORIN Level 3 ead 23:36 Method Of Arrival: Walkin/Carried/Asstd ead Triage Assessment: 23:38 General: Appears in no apparent distress, comfortable, well nourished, well groomed, ead Behavior is appropriate for age, cooperative, pleasant. Pain: Location: abdomen Pain currently is 5 out of 10 on a pain scale. Pain began "before Chata.". Neurological: Level of Consciousness is awake, alert, obeys commands, Oriented to person, place, time, Denies weakness dizziness. Respiratory: Airway is patent Respiratory effort is even, unlabored. GI: Reports lower abdominal pain, upper abd pain, Denies nausea, vomiting. Derm: No deficits noted. 23:40 Pt Declines HIV testing. ead Historical: - Allergies: no known allergies; - Home Meds: 1. none - PMHx: Cataracts; - PSHx: none; - Social history: Smoking status: Patient states was never smoker of tobacco. Patient/guardian denies using alcohol, street drugs, No barriers to communication noted, The patient speaks fluent Chinese, Speaks appropriately for age. - Family history: Not pertinent. - : The pt / caregiver states he / she is not on anticoagulants. Home medication list is obtained from the patient. - Exposure Risk Screening:: None identified. Screenin/05 00:34 Screening information is obtained from the patient. Fall risk: No risks identified. kas2 Assistance ADL's: requires no assistance with activities of daily living. Abuse/DV Screen: The patient / caregiver reports he/she is: not in a situation that causes fear, pain or injury. Nutritional screening: No deficits noted. Advance Directives: Currently, there is no health care proxy. There is no active DNR order. There is no living will. There is no Power of Sheet Metal Assembler. home support is adequate. Assessment: 00:33 General: Appears in no apparent distress, comfortable, well nourished, well groomed, kas2 Behavior is appropriate for age, cooperative. Pain: Denies pain. Neurological: Level of Consciousness is awake, alert, Oriented to person, place, time, Senior Electrical Project Manager are equal bilaterally Moves all extremities. Speech is normal, Facial symmetry appears normal, Pupils are PERRLA. Cardiovascular: Capillary refill < 3 seconds Heart tones present Rhythm is regular. Respiratory: Airway is patent Respiratory effort is even, unlabored, Respiratory pattern is regular, symmetrical, Breath sounds are clear bilaterally. Derm: Skin is intact, is healthy with good turgor, Skin is dry, Skin is normal, Skin temperature is warm. 01:22 General: Patient up to bathroom to void.. kas2 01:30 General: Patient back in room and settled with family at bedside. No complaints at this kas2 time. Appears comfortable. Will continue to monitor.. Vital Signs: 11/30 23:34 BP 189 / 89 RA Sitting (auto/lg); Pulse 119; Resp 18; Temp 98.7(O); Pulse Ox 100% ; cmb Weight 102.06 kg; Height 5 ft. 9 in. (175.26 cm); Pain 0/10; 12/01 00:01 BP 150 / 80 RA Sitting (man/lg); jmb 00:25 BP 130 / 58 Supine (auto/lg); Pulse 75; ajs 00:25 BP 146 / 89 Sitting (man/lg); Pulse 76; ajs 00:26 BP 145 / 82 Standing (/lg); Pulse 81; ajs 01:51 BP 136 / 75; Pulse 64; Resp 18; Temp 98.5; Pulse Ox 98% ; ajs 11/30 23:34 Body Mass Index 33.23 (102.06 kg, 175.26 cm) cmb Vitals: 11/30 23:34 Log In Time: November 30, 2016 at 23:32. cmb ED Course: 23:33 Patient visited by Shirlene Adams. cmb 23:33 Patient moved to Waiting cmb 23:34 [facility] is Private Physician. cmb 23:36 Patient moved to Pre RCE cmb 23:38 Triage Initiated ead 23:40 Patient moved to Triage 1 ead 23:54 EKG done. (by ED staff). Reviewed by Madison Ozuna DO. jmb 12/01 00:05 Melo Acuna PA is PHCP. mo1 00:05 Madison Ozuna DO is Attending Physician. mo1 00:17 Patient visited by Melo Acuna PA. mo1 00:19 Patient moved to I5 / M5 jmb 00:26 Patient visited by Gail Cerrato. ajs 00:27 Drug Eval Toxicology ED Only Sent. jmb 00:27 Urinalysis Sent. jmb 00:34 Inserted saline lock: 20 gauge in left antecubital area and blood collected. The kas2 patient tolerated the procedure well. No procedures done that require assistance. 00:35 Patient visited by Kerry Rader RN. kas2 00:48 [facility] Payment Agreement was scanned into [employer] and attached to record. [facility] 00:55 Patient name changed from Javonta\\S\\\\S\\Jorge\\S\\ to Javonta\\S\\Loren\\S\\Jorge. EDMS 01:07 Patient visited by Kerry Rader RN. kas2 01:22 Patient visited by Kerry Rader RN. kas2 01:42 [facility] is Referral Physician. mo1 01:48 Patient visited by Kerry Rader RN. kas2 01:51 Patient visited by Gail Cerrato. ajs 01:52 Discontinued IV bleeding controlled, pressure dressing applied, No redness/swelling at [facility] site. 01:53 The patient / caregiver is instructed regarding the plan of care and ED course. kas2 12:30 EKG-ADULT Returned. EDMS 12/02 08:53 T-Sheet-- Draft Copy was scanned into [employer] and attached to record. gb Administered Medications: 12/01 00:32 Drug: NS 0.9% 1000 ml [sodium chloride 0.9 % intravenous solution] Route: IV; Rate: kas2 bolus; Site: left antecubital; Order Results: Lab Order: Basic Metabolic Profile; SPEC'M 12/01/16 00:30 Test: GLUCOSE, FASTING; Value: 101; Range: 70-105; Units: MG/DL; Status: F Test: BLOOD UREA NITROGEN; Value: 13; Range: 7-18; Units: MG/DL; Status: F Test: CREATININE FOR GFR; Value: 1.33; Range: 0.70-1.30; Abnormal: Above high normal; Units: MG/DL; Status: F Test: SODIUM LEVEL; Value: 141; Range: 136-145; Units: MEQ/L; Status: F Test: POTASSIUM SERUM; Value: 3.6; Range: 3.5-5.1; Units: MEQ/L; Status: F Test: CHLORIDE LEVEL; Value: 103; Range: 98-107; Units: MEQ/L; Status: F Test: CARBON DIOXIDE LEVEL; Value: 30; Range: 21-32; Units: MEQ/L; Status: F Test: ANION GAP; Value: 8; Range: 8-16; Units: MEQ/L; Status: F Test: CALCIUM LEVEL; Value: 9.0; Range: 8.5-10.1; Units: MG/DL; Status: F Lab Order: CBC with Diff; SPEC'M 12/01/16 00:30 Test: WHITE BLOOD COUNT; Value: 11.4; Range: 4.0-10.0; Abnormal: Above high normal; Units: K/mm3; Status: F Test: RED BLOOD COUNT; Value: 4.95; Range: 4.30-6.10; Units: M/mm3; Status: F Test: HEMOGLOBIN; Value: 14.0; Range: 14.0-18.0; Units: g/dl; Status: F Test: HEMATOCRIT; Value: 42.9; Range: 42.0-52.0; Units: %; Status: F Test: MEAN CORPUSCULAR VOLUME; Value: 86.6; Range: 80.0-96.0; Units: fl; Status: F Test: MEAN CORPUSCULAR HEMOGLOBIN; Value: 28.4; Range: 27.0-33.0; Units: pg; Status: F Test: MEAN CORPUSCULAR HGB CONC; Value: 32.7; Range: 32.0-36.5; Units: g/dl; Status: F Test: RED CELL DISTRIBUTION WIDTH; Value: 13.1; Range: 11.5-14.5; Units: %; Status: F Test: PLATELET COUNT, AUTOMATED; Value: 230; Range: 150-450; Units: k/mm3; Status: F Test: NEUTROPHILS %; Value: 71.8; Range: 36.0-66.0; Abnormal: Above high normal; Units: %; Status: F Test: LYMPH %; Value: 18.2; Range: 24.0-44.0; Abnormal: Below low normal; Units: %; Status: F Test: MONO %; Value: 5.5; Range: 0.0-5.0; Abnormal: Above high normal; Units: %; Status: F Test: EOS %; Value: 1.8; Range: 0.0-3.0; Units: %; Status: F Test: BASO %; Value: 1.5; Range: 0.0-1.0; Abnormal: Above high normal; Units: %; Status: F Test: LARGE UNSTAINED CELL %; Value: 1.3; Range: 0.0-4.0; Units: %; Status: F Test: NEUTROPHILS #; Value: 8.2; Range: 1.8-7.7; Abnormal: Above high normal; Units: K/mm3; Status: F Test: LYMPH #; Value: 2.2; Range: 1.5-6.5; Units: K/mm3; Status: F Test: MONO #; Value: 0.6; Range: 0.0-0.8; Units: K/mm3; Status: F Test: EOS #; Value: 0.2; Range: 0.0-0.50; Units: K/mm3; Status: F Test: BASO #; Value: 0.2; Range: 0.0-0.2; Units: K/mm3; Status: F Test: LARGE UNSTAINED CELL #; Value: 0.2; Range: 0.0-0.4; Units: K/mm3; Status: F Lab Order: Cardiac Injury Profile; SPEC'M 12/01/16 00:30 Test: CPK CREATINE PHOSPHOKINASE; Value: 1743; Range: 39-308; Abnormal: Above high normal; Units: U/L; Status: F Test: CK-MB VALUE MASS; Value: 2.9; Range: 0.0-3.6; Units: NG/ML; Status: F Test: MB/CK RELATIVE INDEX; Value: 0.16; Range: < OR =4; Status: F Test Note: ; DIAGNOSIS CRITERIA MMB ng/ml Relative Index (RI) NON-AMI < or = 5 N/A LUCAS ZONE > 5 < or = 4 AMI > 5 > 4 Lab Order: Drug Eval Toxicology ED Only; SPEC'M 12/01/16 00:30 Test: AMPHETAMINES LEVEL URINE; Value: NEGATIVE; Range: NEGATIVE; Status: F Test: BARBITURATES URINE; Value: NEGATIVE; Range: NEGATIVE; Status: F Test: BENZODIAZEPINES URINE; Value: NEGATIVE; Range: NEGATIVE; Status: F Test: CANNABINOIDS URINE; Value: NEGATIVE; Range: NEGATIVE; Status: F Test: COCAINE METABOLITE URINE; Value: NEGATIVE; Range: NEGATIVE; Status: F Test: METHADONE URINE; Value: NEGATIVE; Range: NEGATIVE; Status: F Test: OPIATES URINE; Value: NEGATIVE; Range: NEGATIVE; Status: F Test: TRICYCLIC ANTIDEPRESS URINE; Value: NEGATIVE; Range: NEGATIVE; Status: F Test Note: ; ALL PRESUMPTIVE POSITIVE FINDINGS ARE UNCONFIRMED NORMAL VALUES THRESHOLD IN NG/ML AMPHETAMINES 1000 METHAMPHETAMINES 1000 BARBITURATES 300 BENZODIAZEPINES 300 CANNABINOIDS (THC) 50 COCAINE METABOLITE 300 METHADONE 300 OPIATES 300 PHENCYCLIDINE 25 TRICYCLIC ANTIDEPRESSANTS 1000 RESULTS ARE FOR MEDICAL PURPOSES ONLY. ALL URINE SPECIMENS WILL BE SAVED FOR 3 DAYS. IF CONFIRMATION OF A PRESUMPTIVE POSTIVE SCREEN RESULT IS DESIRED, CALL CHEMISTRY ([phone]) AND REQUEST URINE TO BE SENT TO REFERENCE LAB. FOR A LIST OF CLOSELY RELATED COMPOUNDS PLEASE CALL THE LAB. Lab Order: Thyroid Stimulating Hormone; SPEC'M 12/01/16 00:30 Test: THYROID STIMULATING HORMONE; Value: 2.350; Range: 0.358-3.740; Units: uIU/ML; Status: F Lab Order: Troponin; SPEC'M 12/01/16 00:30 Test: TROPONIN I; Value: < 0.02; Range: < 0.10; Units: NG/ML; Status: F Test Note: ; Troponin I Reference Interval for Siemens [place] LOCI: 99th Percentile= 0.00-0.045 ng/ml Risk Stratification: <= 0.10 ng/ml Decreased Risk for Adverse Clinical Events. 0.10-1.50 ng/ml Increased Risk for Adverse Clinical Events. Evaluation of additional criterion and/or repeat testing in 2-6 hours is suggested to rule out myocardial damage. >= 1.50 ng/ml Indicative of Myocardial Injury. Lab Order: Urinalysis; SPEC'M 12/01/16 00:30 Test: APPEARANCE, URINE; Value: CLEAR; Range: CLEAR; Status: F Test: COLOR, URINE; Value: COLORLESS; Range: YELLOW; Status: F Test: PH,URINE; Value: 6.0; Range: 5.0-9.0; Units: UNITS; Status: F Test: SPECIFIC GRAVITY URINE AUTO; Value: 1.001; Range: 1.002-1.035; Abnormal: Below low normal; Status: F Test: PROTEIN, URINE AUTO; Value: NEGATIVE; Range: NEGATIVE; Units: mg/dL; Status: F Test: GLUCOSE, URINE (UA) AUTO; Value: NEGATIVE; Range: NEGATIVE; Units: mg/dL; Status: F Test: KETONE, URINE AUTO; Value: NEGATIVE; Range: NEGATIVE; Units: mg/dL; Status: F Test: UROBILINOGEN, URINE AUTO; Value: 0.2; Range: 0.0-2.0; Units: mg/dL; Status: F Test: BILIRUBIN, URINE AUTO; Value: NEGATIVE; Range: NEGATIVE; Status: F Test: NITRITE, URINE AUTO; Value: NEGATIVE; Range: NEGATIVE; Status: F Test: LEUKOCYTE ESTERASE, URINE AUTO; Value: NEGATIVE; Range: NEGATIVE; Status: F Test: BLOOD, URINE BLOOD; Value: NEGATIVE; Range: NEGATIVE; Status: F Test: WBC, URINE AUTO; Value: 0; Range: 0-3; Units: /HPF; Status: F Test: RBC, URINE AUTO; Value: 0; Range: 0-3; Units: /HPF; Status: F Test: BACTERIA, URINE AUTO; Value: NEGATIVE; Range: NEGATIVE; Status: F Test: SQUAMOUS EPITHELIAL CELL UR AU; Value: 0; Range: 0-6; Units: /HPF; Status: F Test: HYALINE CAST, URINE AUTO; Value: 0; Range: 0-1; Units: /LPF; Status: F Radiology Order: EKG-ADULT Test: EKG-ADULT REASON FOR EXAMINATION: Syncope; Stationary ECG Study; [facility] - ED; ; Test Date: 2016-11-30; Pat Name: KWAKU HOUGH Department:; Room: -; Gender: M Aircrewman: jacob; : 1990 Requested By: MADISON OZUNA; Order Number: [id number] Reading MD: Gale Espino; Measurements; Intervals [place]; Rate: 87 P: 70; [place]: 132 QRS: 68; QRSD: 102 T: 26; QT: 349; QTc: 421; Interpretive Statements; SINUS RHYTHM; RIGHT VENTRICULAR CONDUCTION DELAY; NO PRIOR FOR COMPARISON; Electronically Signed On 12-01-2016 12:06:05 EST by aGle Espino; Outcome: 01:43 Discharge ordered by Provider. mo1 01:53 Discharge Assessment: patient administered narcotics - no. The following High Risk [facility] Discharge criteria are identified: None. Discharged to home ambulatory, with family. Condition: good Condition: stable Condition: improved. No special radiology studies were completed. Property :Personal belongings accompany Pt. 01:56 Patient left the ED. kas2 Signatures: Dispatcher [employer] EDMS Caryn Kim, Gail Borjas [place] cmb O'Hagan, Michael, PA PA mo1 Matt GarciaRN RN Chasidy Bentley RN RN Antonia Zuñiga Kim, RN RN kas2 Chart Complete MTDD
--- NOTE | 2016-12-06 09:34 | EDDOCDS ---
Physician Documentation [facility] Name: Elif Patel Age: 25 yrs Sex: Male : 1990 Arrival Date: 11/30/2016 Time: 23:32 Bed I5 / M5 Private MD: [facility] Disposition: 12/01/16 01:43 Discharged to Home/Self Care. Impression: Syncope and collapse, Dehydration. - Condition is Stable. - Discharge Instructions: Dehydration, Adult, Near-Syncope, Syncope. - Medication Reconciliation, Local Pharmacy Hours form. - Follow up: [facility]; When: Call to arrange an appointment; Reason: Recheck today's complaints, Continuance of care. - Problem is new. - Symptoms have improved. Historical: - Allergies: no known allergies; - Home Meds: 1. none - PMHx: Cataracts; - PSHx: none; - Social history: Smoking status: Patient states was never smoker of tobacco. Patient/guardian denies using alcohol, street drugs, No barriers to communication noted, The patient speaks fluent Hong Konger, Speaks appropriately for age. - Family history: Not pertinent. - : The pt / caregiver states he / she is not on anticoagulants. Home medication list is obtained from the patient. - Exposure Risk Screening:: None identified. Vital Signs: 11/30 23:34 BP 189 / 89 RA Sitting (auto/lg); Pulse 119; Resp 18; Temp 98.7(O); Pulse Ox 100% ; cmb Weight 102.06 kg / 225 lbs; Height 5 ft. 9 in. (175.26 cm); Pain 0/10; 12/01 00:01 BP 150 / 80 RA Sitting (man/lg); jmb 00:25 BP 130 / 58 Supine (auto/lg); Pulse 75; ajs 00:25 BP 146 / 89 Sitting (man/lg); Pulse 76; ajs 00:26 BP 145 / 82 Standing (/lg); Pulse 81; ajs 01:51 BP 136 / 75; Pulse 64; Resp 18; Temp 98.5; Pulse Ox 98% ; ajs 11/30 23:34 Body Mass Index 33.23 (102.06 kg, 175.26 cm) cmb MDM: 11/30 23:45 ECG WITH READING ER PHYS+CARDIAG ordered. EDMS 05 00:21 IV Saline Lock ordered. mo1 00:21 Orthostatic VS ordered. mo1 00:21 NS 0.9% 1000 ml IV at bolus once ordered. mo1 00:22 Basic Metabolic Profile Ordered. EDMS 00:22 CBC with Diff Ordered. EDMS 00:22 Cardiac Injury Profile Ordered. EDMS 00:22 Drug Eval Toxicology ED Only Ordered. EDMS 00:22 Thyroid Stimulating Hormone Ordered. EDMS 00:22 Troponin Ordered. EDMS 00:22 Urinalysis Ordered. EDMS 00:44 Financial registration complete. sl 00:48 [facility] Payment Agreement was scanned into [employer] and attached to record. slh 01:34 CBC with Diff Reviewed. mo1 01:34 Cardiac Injury Profile Reviewed. mo1 01:34 Urinalysis Reviewed. mo1 01:34 Drug Eval Toxicology ED Only Reviewed. mo1 01:34 Thyroid Stimulating Hormone Reviewed. mo1 01:35 Troponin Reviewed. mo1 01:50 Basic Metabolic Profile Reviewed. [facility] [place] [place] 12/02 08:53 T-Sheet-- Draft Copy was scanned into [employer] and attached to record. gb Administered Medications: 12/01 00:32 Drug: NS 0.9% 1000 ml [sodium chloride 0.9 % intravenous solution] Route: IV; Rate: kas2 bolus; Site: left antecubital; Signatures: Dispatcher [employer] EDGA Caryn Kim, Reg Reg gb Melo Acuna PA PA mo1 Chasidy CamposRN Antonia Mitchell Kim, RN RN kas2 The chart was reviewed and I authenticate all verbal orders and agree with the evaluation and treatment provided.Attachments: 00:48 [facility] Payment Agreement [facility] 12/02 08:53 T-Sheet-- Draft Copy gb Chart Complete MTDD
== END 2016-12-01 01:56 | disposition home or self-care (01) ==
LOC: M ED 23:32
DX: R55 Syncope and collapse (principal); E86.0 Dehydration; H26.9 Unspecified cataract

== ENCOUNTER 2017-03-27 22:43 | Emergency (ER) | payer OTHER ==
[~2017-03-27] VITALS: Ht 175.3 cm; Wt 102.1 kg
[2017-03-27] MEDS: ONDANSETRON 4 MG ORAL DISINTEGRATING TAB (S0181) PO ONE (23:35)
[2017-03-27] MEDS: diazePAM 5 MG TAB PO ONE (23:35)
[2017-03-27] MEDS: MECLIZINE 25 MG TABLET PO ONE (23:35)
[2017-03-27] MEDS: AUGMENTIN 875 MG TAB PO ONE (23:35)
[2017-03-27] MEDS ORDERED: AUGM875T27 PO (23:38)
[2017-03-27] MEDS ORDERED: ZOFR4TAB3 PO (23:38)
[2017-03-27] MEDS ORDERED: VALI5TAB PO (23:38)
[2017-03-27] MEDS ORDERED: MECL-68 PO (23:38)
[2017-03-27 23:44] VITALS: BP 138/72
== END 2017-03-27 23:45 | disposition home or self-care (01) ==
LOC: M ED 23:34
DX: H65.02 Acute serous otitis media, left ear (principal); H81.12 Benign paroxysmal vertigo, left ear; H81.392 Other peripheral vertigo, left ear

== ENCOUNTER 2017-11-30 08:25 | Emergency (ER) | payer OTHER ==
[2017-11-30 09:14] LABS: WHITE BLOOD COUNT 10.3 10^3/uL (4.0-10.0)
[2017-11-30 09:15] LABS: BASO % 0.1 % (0.0-1.0); EOS % 0.1 % (0.0-3.0); HEMATOCRIT 43.4 % (42.0-52.0); HEMOGLOBIN 14.9 g/dl (14.0-18.0); IMMATURE GRANULOCYTE % 0.3 % (0-0); LYMPH # 1.4 10^3/uL (1.5-6.5); LYMPH % 13.1 % (24.0-44.0); MEAN CORPUSCULAR HEMOGLOBIN 29.7 pg (27.0-33.0); MEAN CORPUSCULAR HGB CONC 34.3 g/dl (32.0-36.5); MEAN CORPUSCULAR VOLUME 86.5 fl (80.0-96.0); MONO # 0.5 10^3/uL (0.0-0.8); MONO % 4.6 % (0.0-5.0); NEUTROPHILS # 8.4 10^3/uL (1.8-7.7); NEUTROPHILS % 81.8 % (36.0-66.0); PLATELET COUNT, AUTOMATED 274 10^3/uL (150-450); RED BLOOD COUNT 5.02 10^6/uL (4.30-6.10); RED CELL DISTRIBUTION WIDTH 11.9 % (11.5-14.5)
[2017-11-30 09:35] LABS: ALBUMIN 4.4 GM/DL (3.2-5.2); ALBUMIN/GLOBULIN RATIO 1.16 (1.00-1.93); ALKALINE PHOSPHATASE 74 U/L (45-117); ALT/SGPT 56 U/L (12-78); ANION GAP 7 MEQ/L (8-16); AST/SGOT 49 U/L (7-37); BILIRUBIN,TOTAL 0.4 MG/DL (0.2-1.0); BLOOD UREA NITROGEN 12 MG/DL (7-18); CALCIUM LEVEL 9.9 MG/DL (8.5-10.1); CARBON DIOXIDE LEVEL 32 MEQ/L (21-32); CHLORIDE LEVEL 101 MEQ/L (98-107); CREATININE FOR GFR 1.31 MG/DL (0.70-1.30); GLOMERULAR FILTRATION RATE > 60.0 (>60); GLUCOSE, FASTING 87 MG/DL (70-105); POTASSIUM SERUM 4.2 MEQ/L (3.5-5.1); SODIUM LEVEL 140 MEQ/L (136-145); TOTAL PROTEIN 8.2 GM/DL (6.4-8.2)
[2017-11-30] MEDS: NS 1,000 ML IV (09:42)
[2017-11-30] MEDS: KETOROLAC 30 MG/ML VIAL (J1885) IV (11:28)
== END 2017-11-30 14:04 | disposition home or self-care (01) ==
LOC: M ED 08:25
DX: R55 Syncope and collapse (principal); Z86.69 Personal history of other diseases of the nervous system and sense organs
CPT/HCPCS: J1885

== ENCOUNTER 2018-07-25 08:29 | Emergency (ER) | payer OTHER ==
[2018-07-25 10:17] LABS: ANION GAP 3 MEQ/L (8-16); BLOOD UREA NITROGEN 12 MG/DL (7-18); CALCIUM LEVEL 9.6 MG/DL (8.5-10.1); CARBON DIOXIDE LEVEL 33 MEQ/L (21-32); CHLORIDE LEVEL 105 MEQ/L (98-107); CPK CREATINE PHOSPHOKINASE 3900 U/L (39-308); CREATININE FOR GFR 1.71 MG/DL (0.70-1.30); GLOMERULAR FILTRATION RATE > 60.0 (>60); GLUCOSE, FASTING 86 MG/DL (70-100); SODIUM LEVEL 141 MEQ/L (136-145)
[2018-07-25 10:19] LABS: POTASSIUM SERUM 5.5 MEQ/L (3.5-5.1)
[2018-07-25] MEDS: NS 1,000 ML IV (10:53)
[2018-07-25 14:39] LABS: ANION GAP 8 MEQ/L (8-16); BLOOD UREA NITROGEN 11 MG/DL (7-18); CARBON DIOXIDE LEVEL 29 MEQ/L (21-32); CHLORIDE LEVEL 106 MEQ/L (98-107); CPK CREATINE PHOSPHOKINASE 3220 U/L (39-308); CREATININE FOR GFR 1.49 MG/DL (0.70-1.30); GLOMERULAR FILTRATION RATE > 60.0 (>60); GLUCOSE, FASTING 108 MG/DL (70-100); POTASSIUM SERUM 4.2 MEQ/L (3.5-5.1); SODIUM LEVEL 143 MEQ/L (136-145)
== END 2018-07-25 15:41 | disposition home or self-care (01) ==
LOC: M ED 08:29
DX: T67.3XXA Heat exhaustion, anhydrotic, initial encounter (principal); E86.0 Dehydration; M62.82 Rhabdomyolysis; X30.XXXA Exposure to excessive natural heat, initial encounter; Y92.89 Other specified places as the place of occurrence of the external cause; I10 Essential (primary) hypertension; Z79.899 Other long term (current) drug therapy
CPT/HCPCS: 82550

== ENCOUNTER → 2018-08-15 | Outpatient (CLI) | payer OTHER | LOC: M RAD 13:04 | DX: R55 Syncope and collapse (principal); R03.0 Elevated blood-pressure reading, without diagnosis of hypertension ==

== ENCOUNTER → 2018-08-20 | Outpatient (CLI) | payer OTHER | LOC: M RAD 06:58 | DX: R55 Syncope and collapse (principal) | CPT/HCPCS: 76775 ==